=== PATIENT | female | born 1965 | race Caucasian/White ===

== ENCOUNTER → 2020-11-16 | Outpatient (CLI) | payer OTHER | LOC: KOH-I 12:50 | DX: Z13.89 Encounter for screening for other disorder (principal); F17.200 Nicotine dependence, unspecified, uncomplicated; R91.8 Other nonspecific abnormal finding of lung field | CPT/HCPCS: 71271 ==

== ENCOUNTER → 2021-04-04 | Outpatient (CLI) | payer OTHER | LOC: MAMO 14:00 | DX: Z12.31 Encounter for screening mammogram for malignant neoplasm of breast (principal); N64.89 Other specified disorders of breast | CPT/HCPCS: 77063; 77067 ==

== ENCOUNTER → 2021-08-01 | Outpatient (CLI) | payer OTHER | LOC: US 05-06 13:00 → MAMO 05-06 13:00 → US 05-06 13:30 → MAMO 07-15 13:30 → US 07-15 14:00 → MAMO 13:46 | DX: R92.8 Other abnormal and inconclusive findings on diagnostic imaging of breast (principal); N60.02 Solitary cyst of left breast; N60.01 Solitary cyst of right breast | CPT/HCPCS: 76641-LT; 76641-RT; 77065; G0279 ==

== ENCOUNTER → 2021-12-10 | Outpatient (CLI) | payer OTHER | LOC: US 12-03 14:00 | DX: R92.8 Other abnormal and inconclusive findings on diagnostic imaging of breast (principal) | CPT/HCPCS: 76641-LT ==

== ENCOUNTER → 2022-01-29 | Outpatient (CLI) | payer OTHER | LOC: KOH-I 11:12 | DX: F17.210 Nicotine dependence, cigarettes, uncomplicated (principal); R91.8 Other nonspecific abnormal finding of lung field | CPT/HCPCS: 71271 ==

== ENCOUNTER → 2022-06-05 | Outpatient (CLI) | payer OTHER | LOC: KOH-I 10:00 | DX: R91.8 Other nonspecific abnormal finding of lung field (principal) | CPT/HCPCS: 71250 ==